=== PATIENT | male | born 1940 | race Caucasian/White ===

== ENCOUNTER → 2019-03-04 | Outpatient (CLI) | payer OTHER ==
[2019-03-05 19:35] LABS: C DIFFICILE BY DNA AMP Positive (Negative)
== END | disposition home or self-care (01) ==
LOC: LAB SHORT 09:29 → LAB 09:29
PROVIDERS: Family Medicine
DX: A04.72 Enterocolitis due to Clostridium difficile, not specified as recurrent (principal)
CPT/HCPCS: 87324; 87493

== ENCOUNTER → 2019-03-05 | Outpatient (CLI) | payer OTHER | END | disposition home or self-care (01) | LOC: LAB SHORT 16:46 → LAB 16:46 | DX: A04.72 Enterocolitis due to Clostridium difficile, not specified as recurrent (principal) | CPT/HCPCS: 87324; 87493 ==